=== PATIENT | female | born 1990 | race Caucasian/White ===

== ENCOUNTER 2016-06-17 07:56 | Emergency (ER) | payer BC, OTHER ==
[~2016-06-17] VITALS: Ht 160 cm; Wt 51.5 kg
[~2016-06-17 07:56] MED LIST: ALBU1AER9 INH; PRLSR20 PO
[2016-06-17 07:59] VITALS: TEMP 37; Ht 160 cm; Wt 51.5 kg
[2016-06-17 08:37] LABS: BASO % 0.3 %; BASO ABS # 0.02 K/uL (0-0.2); COMPLETE YES; EOS % 1.3 %; HEMATOCRIT 40.5 % (37-47); IG% 0.1 %; LYMPH % 39.7 %; LYMPH ABS # 2.71 K/uL (1.2-3.4); MEAN CELL VOLUME 88.6 fL (80-100); MEAN CORPUSCULAR HEMOGLOBIN 31.3 pg (25-34); MEAN CORPUSCULAR HGB CONC 35.3 g/dl (32-36); MEAN PLATELET VOLUME 9.6 fL (7.4-10.4); MONO % 6.3 %; NEUT % 52.3 %; PLATELET COUNT 242 K/uL (130-400); RED BLOOD COUNT 4.57 M/uL (4.2-5.4); WHITE BLOOD COUNT 6.83 K/uL (4.8-10.8)
[2016-06-17] MEDS ORDERED: VNTHFA/IN INH (08:43)
[2016-06-17 08:46] LABS: BUN/CREATININE RATIO 12.2 (10-20); CALCIUM 9.1 mg/dl (8.5-10.1); CREATININE 0.73 mg/dl (0.60-1.20); POTASSIUM 3.6 mmol/L (3.5-5.1)
[2016-06-17 08:49] LABS: ALB/GLOB RATIO 1.1 (0.9-2)
--- NOTE | 2016-06-17 08:50 | EMERGENCY ROOM VISIT NOTE ---
History First contact with patient: 08:05 Chief Complaint: CHEST PAIN Stated Complaint: PAIN IN LEFT SIDE OF CHEST Nursing Triage Summary: Patient c/o upper mid chest pain that began yesterday at 1pm. Stabbing pains at times. SOB since pain started. Hx asthma. History of Present Illness The patient is a 26 year old female who presents to the Emergency Room via private vehicle accompanied by father with complaints of "pain and left-sided chest". Patient states that she developed stabbing, constant left-sided chest pain that radiates to the left scapula which she rates as a 10 out of 10 that developed yesterday while she started work. She denies any aggravating or alleviating factors. She has had a history of this before without any evidence of underlying cause. There is shortness of breath, and dry cough. She denies any palpitations, pleuritic chest pain, fevers, chills, nausea, vomiting, diarrhea, abdominal pain. She has had an off and on cold this winter, but no recent illness. She has tried Aleve with minimal relief. She denies any family cardiac history. She denies smoking, recent travel, control. Review of Systems A complete 10-point Review of Systems was discussed with the patient, with pertinent positives and negatives listed in the History of Present Illness. All remaining Review of Systems questions can be considered negative unless otherwise specified. Past Medical/Surgical History Medical Problems: (1) Abdominal pain Family History Cancer Diabetes mellitus Gallbladder disease Heart disease Hypertension Lung disease Social History Smoking Status: Never Smoker Alcohol Use: none Marital Status: single Housing Status: lives with family Occupation Status: employed Current/Historical Medications Scheduled Albuterol Hfa (Ventolin Hfa), 2-4 PUFFS INH Q6H Allergies Coded Allergies: Benzoyl Peroxide (Verified Allergy, Unknown, ., 06/17/16) Physical Exam Vital Signs Date Time Temp Pulse Resp B/P Pulse Ox O2 Delivery O2 Flow Rate FiO2 06/17/16 10:54 72 14 105/72 99 06/17/16 10:11 73 15 115/75 100 Room Air 06/17/16 09:30 73 16 115/72 97 Room Air 06/17/16 09:22 80 06/17/16 08:52 75 16 110/85 100 Room Air 06/17/16 08:51 100 Room Air 06/17/16 08:05 98 06/17/16 07:59 37.0 60 17 98 Room Air Physical Exam VITAL SIGNS - Vital signs and nursing notes were reviewed. GENERAL -26-year-old female appearing her stated age who is in no acute distress. Communicates well with provider and answers questions appropriately. SKIN - Without rashes. HEAD - NC/AT. EYES - PERRL with EOMI bilaterally. Sclera anicteric. Palpebral conjunctiva pink and moist with no injection noted. EARS - No deformities of external structures noted on gross examination bilaterally. No pain elicited with palpation of the tragus bilaterally. External auditory canals without discharge or otorrhea. Tympanic membranes pearly montoya without retraction or bulging. No fluid or purulent material visualized behind the TM. Handle of malleus, umbo, cone of light, pars tensa/ flaccid all easily visualized. NOSE - Midline and without cyanosis. No epistaxis or purulent drainage noted. Septum midline without deviation or septal hematoma noted. MOUTH/OROPHARYNX - Without perioral cyanosis. Buccal mucosa pink and moist and without leukoplakia. Tongue midline with equal elevation of palate bilaterally. No tonsillar hypertrophy, erythema, or exudates noted. Good dentition noted. NECK - Neck with FROM. Supple to palpation. No lymphadenopathy noted. No nuchal rigidity. LUNGS - Chest wall symmetric without accessory muscle use, intercostals retractions, or central cyanosis. Normal vesicular breath sounds CTA B/L. No wheezes, rales, or rhonchi appreciated. CARDIAC - RRR with S1/S2. No murmur, rubs, or gallops appreciated. No reproducible tenderness upon palpation of the anterior chest. ABDOMEN - Abdominal contour No without pulsations or visible masses. BS normoactive all four quadrants. There is slight tenderness to palpation of the left lower quadrant. No palpable masses, hepatosplenomegaly, or ascites noted. EXTREMITIES - No clubbing or peripheral cyanosis. No pretibial edema present. + 5/5 strength noted in UE/LE bilaterally. Medical Decision & Procedures ER Provider Diagnostic Interpretation: CHEST AND ABDOMEN 2 VIEWS HISTORY: Left-sided chest pain and left lower quadrant abdominal pain. COMPARISON: Chest 07/18/2015. Abdomen and pelvis CT 07/18/2015. FINDINGS: The lungs are clear. The cardiomediastinal silhouette is within normal limits. There is no pneumoperitoneum or pneumatosis. The bowel gas pattern is unremarkable. No evidence for bowel obstruction. No renal calculi. Moderate well-formed stool seen within the colon. Calcifications in the deep pelvis likely represent phleboliths. IMPRESSION: No acute cardiopulmonary process. No evidence for bowel obstruction. Electronically signed by: Erick Timmons M.D. 06/17/2016 9:16 AM Dictated Date/Time: 06/17/2016 9:14 AM Laboratory Results 06/17/16 08:10 Red Blood Count 4.57, Mean Corpuscular Volume 88.6, Mean Corpuscular Hemoglobin 31.3, Mean Corpuscular Hemoglobin Concent 35.3, Mean Platelet Volume 9.6, Neutrophils (%) (Auto) 52.3, Lymphocytes (%) (Auto) 39.7, Monocytes (%) (Auto) 6.3, Eosinophils (%) (Auto) 1.3, Basophils (%) (Auto) 0.3, Neutrophils # (Auto) 3.57, Lymphocytes # (Auto) 2.71, Monocytes # (Auto) 0.43, Eosinophils # (Auto) 0.09, Basophils # (Auto) 0.02 06/17/16 08:10 Test 06/17/16 08:10 06/17/16 08:38 06/17/16 09:20 White Blood Count 6.83 K/uL (4.8-10.8) Red Blood Count 4.57 M/uL (4.2-5.4) Hemoglobin 14.3 g/dL (12.0-16.0) Hematocrit 40.5 % (37-47) Mean Corpuscular Volume 88.6 fL (80-100) Mean Corpuscular Hemoglobin 31.3 pg (25-34) Mean Corpuscular Hemoglobin Concent 35.3 g/dl (32-36) Platelet Count 242 K/uL (130-400) Mean Platelet Volume 9.6 fL (7.4-10.4) Neutrophils (%) (Auto) 52.3 % Lymphocytes (%) (Auto) 39.7 % Monocytes (%) (Auto) 6.3 % Eosinophils (%) (Auto) 1.3 % Basophils (%) (Auto) 0.3 % Neutrophils # (Auto) 3.57 K/uL (1.4-6.5) Lymphocytes # (Auto) 2.71 K/uL (1.2-3.4) Monocytes # (Auto) 0.43 K/uL (0.11-0.59) Eosinophils # (Auto) 0.09 K/uL (0-0.5) Basophils # (Auto) 0.02 K/uL (0-0.2) RDW Standard Deviation 43.2 fL (36.4-46.3) RDW Coefficient of Variation 13.2 % (11.5-14.5) Immature Granulocyte % (Auto) 0.1 % Immature Granulocyte # (Auto) 0.01 K/uL (0.00-0.02) Anion Gap 8.0 mmol/L (3-11) Est Creatinine Clear Calc Drug Dose 96.6 ml/min Estimated GFR () 133.6 Estimated GFR (Non- 115.3 BUN/Creatinine Ratio 12.2 (10-20) Calcium Level 9.1 mg/dl (8.5-10.1) Magnesium Level 2.0 mg/dl (1.8-2.4) Total Bilirubin 0.7 mg/dl (0.2-1) Aspartate Amino Transf (AST/SGOT) 21 U/L (15-37) Alanine Aminotransferase (ALT/SGPT) 34 U/L (12-78) Alkaline Phosphatase 56 U/L (45-117) Total Protein 8.2 gm/dl (6.4-8.2) Albumin 4.3 gm/dl (3.4-5.0) Globulin 3.9 gm/dl (2.5-4.0) Albumin/Globulin Ratio 1.1 (0.9-2) Lipase 156 U/L (73-393) Human Chorionic Gonadotropin, Qual NEG (NEG) Bedside D-Dimer 196 ng/mlFEU (0-450) Bedside Troponin I 0.000 ng/ml (0-0.045) Urine Color YELLOW Urine Appearance CLEAR (CLEAR) Urine pH 6.5 (4.5-7.5) Urine Specific [place] 1.019 (1.000-1.030) Urine Protein NEG (NEG) Urine Glucose (UA) NEG (NEG) Urine Ketones NEG (NEG) Urine Occult Blood NEG (NEG) Urine Nitrite NEG (NEG) Urine Bilirubin NEG (NEG) Urine Urobilinogen NEG (NEG) Urine Leukocyte Esterase TRACE (NEG) Urine WBC (Auto) 1-5 /hpf (0-5) Urine RBC (Auto) 0-4 /hpf (0-4) Urine Hyaline Casts (Auto) 1-5 /lpf (0-5) Urine Epithelial Cells (Auto) >30 /lpf (0-5) Urine Bacteria (Auto) 1+ (NEG) Medications Administered Medications (Trade) Dose Ordered Sig/Comfort Route Start Time Stop Time Status Last Admin Dose Admin Ketorolac Tromethamine (Toradol Inj) 30 mg STK-MED ONCE .ROUTE 06/17/16 09:12 06/17/16 09:14 DC 06/17/16 09:18 15 MG Medical Decision Patient was seen and evaluated as above. After obtaining a thorough history and physical examination there was concern for pulmonary embolism and acute coronary process. Attention was directed and emergent causes. Left lower quadrant pain was minimal, and she has had a recent CT scan of the abdomen and pelvis. Chest x-ray with abdominal series was obtained. IV access was established. Patient did not want anything for pain. CBC completely unremarkable. Point care d-dimer within normal limits. CMP unremarkable. Point care troponin negative. HCG qualitative negative. Urine reveals trace leukocyte esterase, 1+ bacteria with greater than 30 epithelial cells. I do not suspect a UTI, this is likely contaminated sample. With the [id number] d -dimer being negative, the chest x-ray being unremarkable, the point care troponin being negative and the EKG 2 revealing normal sinus rhythm with sinus arrhythmia rate of 66, and 63 beats respectively, without ischemic change, I do not suspect any emergent process at this time. Patient was well-appearing. She did then request something for pain therefore was given 15 mg of Toradol IV. This provided great relief of her pain. Today's findings were discussed with the patient, and she was encouraged to follow up with her family doctor regarding today's visit. I do not suspect any acute processes at this time. Patient is to follow-up from today's visit, she had questions answered prior to discharge, was educated upon worrisome symptoms which to return and was discharged home in good condition. In the evaluation treatment this patient the following differential diagnoses were entertained: Acute coronary syndrome, PR, PE, costochondritis, pericarditis , muscle strain, among others. Impression Primary Impression: Left sided chest pain Departure Information Dispostion Home / Self-Care Condition GOOD Referrals Shanthi DianeN.P. (PCP) Patient Instructions My [facility] Additional Instructions You have been treated in the Emergency Department for a Left sided chest pain and left lower quadrant abdominal pain. Lab work has helped eliminate emergent causes of chest pain. For pain control, you can use the following [id number] medicines (if >12 yo): - Regular strength (325mg/tab) Tylenol (acetaminophen) 2 tabs every 4-6 hours as needed. Do not exceed 12 tablets in a 24 hour period. Avoid taking more than 4 grams (4000 mg) of Tylenol per day. This includes any other sources of acetaminophen you may take on a regular basis. - Regular strength (200 mg/tab) Advil (ibuprofen) 1-2 tabs every 4-6 hours as needed. Do not exceed a dose of 3200 mg per day.. . Please follow-up with your family doctor regarding today's visit. Please return to the emergency department with any new/concerning symptoms.
[2016-06-17 08:51] VITALS: O2SAT 100
[2016-06-17] MEDS ORDERED: KETOROLAC TROMETHAMINE 15 MG/ML VIAL IV STA (08:53)
[2016-06-17] MEDS ORDERED: KETOROLAC TROMETHAMINE 30 MG/ML VIAL ONE (09:12)
--- NOTE | 2016-06-17 09:17 | DIAGNOSTIC IMAGING REPORT ---
CHEST AND ABDOMEN 2 VIEWS HISTORY: Left-sided chest pain and left lower quadrant abdominal pain. COMPARISON: Chest 07/18/2015. Abdomen and pelvis CT 07/18/2015. FINDINGS: The lungs are clear. The cardiomediastinal silhouette is within normal limits. There is no pneumoperitoneum or pneumatosis. The bowel gas pattern is unremarkable. No evidence for bowel obstruction. No renal calculi. Moderate well-formed stool seen within the colon. Calcifications in the deep pelvis likely represent phleboliths. IMPRESSION: No acute cardiopulmonary process. No evidence for bowel obstruction. Electronically signed by: Erick Timmons M.D. 06/17/2016 9:16 AM Dictated Date/Time: 06/17/2016 9:14 AM
[2016-06-17 09:34] LABS: URINE APPEARANCE CLEAR (CLEAR); URINE BILIRUBIN NEG (NEG); URINE COLOR YELLOW; URINE EPITHELIAL CELL AUTO >30 /lpf (0-5); URINE NITRITE NEG (NEG); URINE PH 6.5 (4.5-7.5); URINE SPECIFIC GRAVITY 1.019 (1.000-1.030); UROBILINOGEN NEG (NEG); ZZUR CULT IF INDIC CLEAN CATCH YES
[2016-06-17 09:37] LABS: MANUAL MICROSCOPIC REQUIRED? NO; REVIEW REQ? NO
[2016-06-17 10:54] VITALS: BP 105/72; PULSE 72; O2SAT 99
[2016-06-17 10:55] LABS: PREG INTERNAL NEGATIVE QC NEG CLEAR BACKGROUND; PREG INTERNAL POSITIVE QC POS CONTROL LINE
== END 2016-06-17 10:57 | disposition home or self-care (01) ==
LOC: C.EDB 07:57
DX: R07.9 Chest pain, unspecified (principal); J45.909 Unspecified asthma, uncomplicated